=== PATIENT | female | born 1950 | race Caucasian/White ===

== ENCOUNTER 2018-08-29 20:39 | Observation (INO) | END 2018-08-31 20:10 ==

== ENCOUNTER 2019-06-01 05:35 | Emergency (ER) | payer OTHER ==
[~2019-06-01] VITALS: Ht 157.5 cm; Wt 54.1 kg
[~2019-06-01 05:35] MED LIST: AMLO-145 PO; LOSA50TA14 PO; MECL-77 PO
[2019-06-01 05:38] VITALS: Ht 157.5 cm; Wt 54.1 kg
[2019-06-01] MEDS ORDERED: morphine 4 MG/ML VIAL IV STA (06:27)
[2019-06-01] MEDS ORDERED: ONDANSETRON 4 MG INJ IV STA (06:27)
[2019-06-01] MEDS ORDERED: NITROFURANTOIN (SR) 100 MG CAP PO ONE (06:30)
[2019-06-01] MEDS ORDERED: IBUP-1542 PO (08:32)
[2019-06-01] MEDS ORDERED: NITR-58 PO (08:32)
--- NOTE | 2019-06-01 08:35 | ERD ---
ER Documentation Chief Complaint Chief Complaint abdominal pain x 2 days HPI Patient is a 68-year-old female with hypertension who presents with pain. She said that on Sunday at 3 AM she started with vomiting and diarrhea. She tried "medicine" but has had abdominal pain which is come and gone. She feels like the pain is in the periumbilical area. She denies bleeding. She has no fevers. She has no recent travel. Upon review of old medical records this is the patient's second visit to the ER since August 2018. Her primary doctor is Dr. Orosco. ROS All systems reviewed and are negative except as per history of present illness. Medications Home Meds Active Scripts Ibuprofen* (Motrin*) 600 Mg Tab, 600 MG PO Q6H PRN for PAIN AND OR ELEVATED TEMP, #30 TAB Prov:RENETTA PEARSON MD 06/01/19 Nitrofurantoin Monohyd Macrocr* (Macrobid*) 100 Mg Capsr, 100 MG PO BID for 7 Days, CAP Prov:RENETTA PEARSON MD 06/01/19 Losartan Potassium* (Losartan Potassium*) 50 Mg Tablet, 50 MG PO BID for 60 Days, TAB Prov:KAYLIN RODRIGUEZ 08/31/18 Meclizine Hcl* (Meclizine Hcl*) 25 Mg Tablet, 25 MG PO Q6 PRN for vertigo/dizzi ness , #90 TAB 1 Refill Prov:KAYLIN RODRIGUEZ 08/31/18 Amlodipine Besylate* (Amlodipine Besylate*) 5 Mg Tablet, 5 MG PO DAILY for 30 Days, TAB 3 Refills Prov:KAYLIN RODRIGUEZ 08/31/18 Allergies Allergies: Coded Allergies: No Known Allergy (Unverified , 08/29/18) PMhx/Soc History of Surgery: No (none) Anesthesia Reaction: No Hx Neurological Disorder: No Hx Respiratory Disorders: Yes (asthma) Hx Cardiac Disorders: Yes (HTN) Hx Psychiatric Problems: No Hx Miscellaneous Medical Probl: Yes (See EMR for details. ) Hx Alcohol Use: No Hx Substance Use: No Hx Tobacco Use: No Smoking Status: Never smoker FmHx Family History: diabetes Physical Exam Vitals Vital Signs Date Temp Pulse Resp B/P (MAP) Pulse Ox O2 O2 Flow FiO2 Time Delivery Rate 06/01/19 65 17 134/87 97 Room Air 06:06 (103) 06/01/19 97.0 78 18 162/83 99 05:38 (109) Physical Exam Const: No acute distress Head: Atraumatic Eyes: Normal Conjunctiva ENT: Normal External Ears, Nose and Mouth. Neck: Full range of motion. No meningismus. Resp: Clear to auscultation bilaterally Cardio: Regular rate and rhythm, no murmurs Abd: Soft, left lower quadrant tenderness to palpation without rebound or guarding Skin: No petechiae or rashes Back: No midline or flank tenderness Ext: No cyanosis, or edema Neur: Awake and alert Psych: Normal Mood and Affect Result Diagram: 06/01/1955 06/01/1954 Results 24 hrs Laboratory Tests Test 06/01/19 05:55 White Blood Count 4.6 10^3/ul Red Blood Count 4.87 10^6/ul Hemoglobin 13.7 g/dl Hematocrit 41.9 % Mean Corpuscular Volume 86.0 fl Mean Corpuscular Hemoglobin 28.1 pg Mean Corpuscular Hemoglobin Concent 32.7 g/dl Red Cell Distribution Width 13.4 % Platelet Count 91 10^3/UL Mean Platelet Volume 12.6 fl Immature Granulocytes % 0.000 % Neutrophils % 37.6 % Lymphocytes % 46.7 % Monocytes % 10.7 % Eosinophils % 3.9 % Basophils % 1.1 % Nucleated Red Blood Cells % 0.0 /100WBC Immature Granulocytes # 0.000 10^3/ul Neutrophils # 1.7 10^3/ul Lymphocytes # 2.2 10^3/ul Monocytes # 0.5 10^3/ul Eosinophils # 0.2 10^3/ul Basophils # 0.1 10^3/ul Nucleated Red Blood Cells # 0.0 10^3/ul Urine Color YELLOW Urine Clarity CLEAR Urine pH 5.0 Urine Specific [place] 1.009 Urine Ketones NEGATIVE mg/dL Urine Nitrite NEGATIVE mg/dL Urine Bilirubin NEGATIVE mg/dL Urine Urobilinogen NEGATIVE mg/dL Urine Leukocyte Esterase 1+ Nelson/ul Urine Microscopic RBC 2 /HPF Urine Microscopic WBC 9 /HPF Urine Mucus FEW /HPF Urine Hemoglobin 1+ mg/dL Urine Glucose NEGATIVE mg/dL Urine Total Protein NEGATIVE mg/dl Sodium Level 144 mmol/L Potassium Level 4.1 mmol/L Chloride Level 108 mmol/L Carbon Dioxide Level 26 mmol/L Anion Gap 10 Blood Urea Nitrogen 9 mg/dl Creatinine 0.61 mg/dl Est Glomerular Filtrat Rate mL/min > 60 mL/min Glucose Level 100 mg/dl Calcium Level 8.9 mg/dl Total Bilirubin 0.4 mg/dl Direct Bilirubin 0.00 mg/dl Indirect Bilirubin 0.4 mg/dl Aspartate Amino Transf (AST/SGOT) 37 IU/L Alanine Aminotransferase (ALT/SGPT) 35 IU/L Alkaline Phosphatase 102 IU/L Total Protein 7.0 g/dl Albumin 3.9 g/dl Globulin 3.10 g/dl Albumin/Globulin Ratio 1.25 Lipase 91 U/L Current Medications Medications Dose Sig/Ayse Start Time Status Last (Trade) Ordered Route PRN Stop Time Admin Dose Reason Admin Morphine 4 mg ONCE STAT 06/01/19 DC 06/01/19 Sulfate IV 06:27 06:37 (morphine) 06/01/19 06:28 Ondansetron 4 mg ONCE STAT 06/01/19 DC 06/01/19 HCl (Zofran IV 06:27 06:36 Inj) 06/01/19 06:28 100 mg ONCE ONCE 06/01/19 DC 06/01/19 Nitrofurantoi PO 06:30 06:36 n 06/01/19 06:31 Macrocrystals (Macrobid) Procedures/MDM CT abdomen pelvis negative per radiology. Patient is a 68-year-old female who presents with abdominal pain as well as vomiting and diarrhea. She was found to have acute cystitis. Otherwise laboratory studies were basically normal. CT scan shows no sign of surgical process at this time. At this point I doubt appendicitis, cholecystitis, pancreatitis, bowel obstruction, or diverticulitis. I believe outpatient management is appropriate but she will need close follow-up with her primary doctor within 24 hours for reevaluation. She will be given a prescription for Macrobid and ibuprofen. I will also give her prescription for Zofran. She can return sooner for any worsening symptoms. Departure Diagnosis: Primary Impression: Cystitis Additional Impression: Abdominal pain Abdominal location: left lower quadrant Qualified Codes: R10.32 - Left lower quadrant pain Condition: Fair Patient Instructions: Abdominal Pain, Cystitis Referrals: Dr. Orosco Additional Instructions: Llame al doctor MAANA y francis cecilio MILLY PARA DENTRO DE 1-2 PATTERSON.Dgale a la secretaria que nosotros le instruimos hacer esta milly.Avise o llame si cutler condicin se empeora antes de la milly. Regresa aqui si peor o no mejor. RENETTA PEARSON MD Jun 01, 2019 08:35
[2019-06-01] MEDS ORDERED: ONDA4TAB14 PO (08:36)
[2019-06-01 09:18] VITALS: BP 145/82; PULSE 56; RESP 18
== END 2019-06-01 09:19 | disposition home or self-care (01) ==
LOC: E/R 05:35
DX: N30.90 Cystitis, unspecified without hematuria (principal); I10 Essential (primary) hypertension; J45.909 Unspecified asthma, uncomplicated
CPT/HCPCS: 36415; 74176; 80053; 81001; 83690; 85025; 96374; 96375; 99285; J2270; J2405